=== PATIENT | male | born 1960 | race Caucasian/White ===

== ENCOUNTER → 2022-11-25 | Day surgery (SDC) | payer MEDICARE, MEDICAID ==
[~2022-11-25] VITALS: Ht 177.8 cm; Wt 74.8 kg
[~2022-11-25] MED LIST: ALBUTEROL 6.7GM HFA INHALER ONE; BUPIVACAINE HCL/PF 0.5% (5MG/ML) 10ML ONE; CALC667C PO; CHOL2000 PO; DAPA5TAB PO; FENTANYL CITRATE/PF 50MCG/ML 2ML VIAL ONE; FOLI0.8T23 PO; HEPARIN SODIUM 1,000 UNIT/1ML VIAL IV ONE; INSU100I28 SQ; LIDOCAINE HCL 1% 10 MG/ML 10ML VIAL ONE; PROPOFOL 200MG/20ML VIAL IV ONE; SODI650T PO; SODIUM CHLORIDE 0.9% 500 ML IV SCH; THROMBIN (BOVINE) 5000 UNITS/VIAL TOP ONE
[2022-11-25 09:54] LABS: BASOPHILS % 2.1 % (0.0-2.0); EOSINOPHILS % 5.4 % (0.0-5.0); HEMATOCRIT. 36.6 % (42.0-52.0); HEMOGLOBIN. 12.5 g/dL (14.0-18.0); LYMPHOCYTES % 27.3 % (20.0-50.0); MEAN CORPUSCULAR HEMOGLOBIN 31.7 pg (28.0-32.0); MEAN CORPUSCULAR HGB CONC 34.1 g/dL (31.0-37.0); MEAN CORPUSCULAR VOLUME 93.1 fL (80.0-94.0); MEAN PLATELET VOLUME 9.3 fl (7.4-10.4); NEUTROPHILS % 55.2 % (40.0-76.0); PLATELET 92 x1000/uL (130-400); RED BLOOD CELL COUNT 3.93 mill/uL (4.7-6.1); RED CELL DISTRIBUTION WIDTH 14.2 % (11.6-14.6); WHITE BLOOD COUNT 5.3 x1000/uL (4.5-11.0)
[2022-11-25 09:58] LABS: POTASSIUM 4.4 mEq/L (3.5-5.1)
[2022-11-25 10:03] LABS: CREATININE 3.8 mg/dL (0.6-1.3); INR 1.1; PARTIAL THROMBOPLASTIN TIME 32.1 sec (23.4-31.0); PROTHROMBIN TIME 11.8 sec (9.6-11.0)
== END | disposition home or self-care (01) ==
LOC: OR 09:12
PROVIDERS: ATTEND Surgery Vascular Surgery
DX: N18.6 End stage renal disease (principal); E11.22 Type 2 diabetes mellitus with diabetic chronic kidney disease; Z99.2 Dependence on renal dialysis; Z79.4 Long term (current) use of insulin; Z79.899 Other long term (current) drug therapy; Z98.890 Other specified postprocedural states
CPT/HCPCS: 80048; 85025; 85610; 85730; 36415; 93005; 36821; J3010; J3490 ×3; J1644; J2704; Z7610 ×23; A4217; J7040

== ENCOUNTER → 2023-01-05 | Day surgery (SDC) | payer MEDICARE, MEDICAID ==
[~2023-01-05] VITALS: Ht 177.8 cm; Wt 74.8 kg
[~2023-01-05] MED LIST changes: +DEXAMETHASONE 4MG/ML 1ML VIAL ONE; -HEPARIN SODIUM 1,000 UNIT/1ML VIAL IV ONE; -LIDOCAINE HCL 1% 10 MG/ML 10ML VIAL ONE; +LIDOCAINE HCL 1% 20ML VIAL (Pyxis) INJ ONE; +METOCLOPRAMIDE HCL 10MG/2ML VIAL ONE; +ONDANSETRON HCL 4MG/2ML INJ ONE; +SKIN ADHESIVE 0.7 GM EA TOP ONE; +SODI10PO PO; +SODIUM CHLORIDE 0.9% 1,000 ML IV SCH; -THROMBIN (BOVINE) 5000 UNITS/VIAL TOP ONE
[2023-01-05 08:49] LABS: POTASSIUM 4.1 mEq/L (3.5-5.1)
[2023-01-05] MEDS: FENTANYL CITRATE/PF 50MCG/ML 2ML VIAL IV PRN ×2 (11:27→11:38)
[2023-01-05 11:38] VITALS: BP 129/87; PULSE 69; RESP 12
== END | disposition home or self-care (01) ==
LOC: OR 06:41
PROVIDERS: ATTEND Surgery
DX: D36.7 Benign neoplasm of other specified sites (principal); N18.6 End stage renal disease; E11.22 Type 2 diabetes mellitus with diabetic chronic kidney disease; Z99.2 Dependence on renal dialysis; Z79.899 Other long term (current) drug therapy; Z98.890 Other specified postprocedural states; Z79.4 Long term (current) use of insulin; Z88.8 Allergy status to other drugs, medicaments and biological substances
CPT/HCPCS: 82962; 84132; 36415; 27043; J3010; J3490 ×2; J1100; J2765; J2405; J2704; Z7610 ×17; A4217